=== PATIENT | female | born 1990 | race Two or more races ===

== ENCOUNTER 2016-11-18 15:41 | Emergency (ER) | payer BC ==
[~2016-11-18] VITALS: Ht 154.9 cm; Wt 93.0 kg
[~2016-11-18 15:41] MED LIST: FLOMAX0.4 MG ORAL; IBUPROFEN800 MG ORAL; NORCO 5-325 TA1 EACH ORAL; REGLAN10 MG ORAL; TYLENOL EXTRA500 MG ORAL
[2016-11-18 15:49] VITALS: BP 138/97
[2016-11-18] MEDS ORDERED: Ketorolac 60mg Inj IM ONE (16:00)
--- NOTE | 2016-11-18 16:04 | Emergency Room Report ---
History of Present Illness General Chief Complaint: Lower Back Pain or Injury Source: Patient Present Illness HPI 26 YO Female presents to the emergency department complaining of 10/10 in severity right sided low back and buttock pain x 1 week with occasional pain shooting down the posterior right leg. pt. states onset was after doing moderate heavy lifting which she normally does not do. Pt. states pain with lying flat, or sitting, pt. states position is only mildly comforting. Pt. states pain has not gotten better. denies RODRÍGUEZ, neck pain or stiffness. Patient denies frequency, urgency, hematuria, urinary retention, abdominal pain , nausea, vomiting, fevers, chills, recent spinal procedure, history of cancer, denies . Denies numbness tingling or loss of sensation or gross motor movements of the extremities, incontinence of bowel or bladder. Denies CP, Palpitations, LOC, AMS, dizziness, Changes in Vision, Sensation, paresthesias, or a sudden severe headache. Allergies: Coded Allergies: No Known Allergies (Unverified , 05/20/14) Patient History Past Medical History: see triage record Past Surgical History: none Pertinent Family History: none Last Menstrual Period: 11/03/16 Now: No Immunizations: UTD Reviewed Nursing Documentation: PMH: Agreed, PSxH: Agreed Nursing Documentation-PMH Past Medical History: No Stated History Hx Gastrointestinal Problems: No - C/Section in 07/2015 Review of Systems All Other Systems: negative except mentioned in HPI Physical Exam Vital Signs Date Time Temp Pulse Resp B/P (MAP) Pulse Ox O2 Delivery O2 Flow Rate FiO2 11/18/16 15:49 98.2 98 16 138/97 100 Room Air Sp02 EP Interpretation: reviewed, normal General Appearance: alert, GCS 15, non-toxic, mild distress Head: normocephalic, atraumatic Eyes: bilateral eye normal inspection, bilateral eye PERRL ENT: hearing grossly normal, normal voice Neck: full range of motion, no meningismus, no bony tend Respiratory: lungs clear, normal breath sounds, speaking full sentences Cardiovascular #1: regular rate, rhythm, normal capillary refill Gastrointestinal: normal bowel sounds, non tender, soft, no guarding, no rebound Rectal: deferred Genitourinary: normal inspection, no CVA tenderness Musculoskeletal: back normal, other - pt. has stance that is slightly bent forward. , tender - moderate TTP to the right upper glute, and lateral lumbar paraspinal musculature, no midline ttp, no appreciable left paraspinal ttp. no obvious deformity, pt. unable to tolerate straight leg raise evaluation. Neurologic: alert, oriented x3, responsive, motor strength/tone normal, sensory intact, speech normal Psychiatric: judgement/insight normal, memory normal, mood/affect normal Reflexes: 2+ knee (R), 2+ knee (L) Skin: normal color, no rash, warm/dry, well hydrated Medical Decision Making PA Attestation Dr. Love is my supervising Physician whom patient management has been discussed with. Diagnostic Impression: Primary Impression: Lumbosacral strain Qualified Codes: S39.012A - Strain of muscle, fascia and tendon of lower back , initial encounter ER Course Patient presents to the emergency department complaining of right sided low back and buttock pain x 1 week with occasional pain shooting down the posterior right leg. pt. states onset was after doing moderate heavy lifting. Ddx considered: epidural abscess, fracture, sprain/strain, meningitis, spinal chord injury. Vital signs reviewed and are WNL during ED visit., non toxic appearance, mild distress. Pt. is afebrile with no signs of infection No new symptoms, and denies recent trauma. No saddle anesthesia noted, Pt. denies incontinence Neurovascular is intact ROM is limited due to pain -Unable to tolerate straight leg raise. * Mild Tenderness to palpation to right paraspinal muscles of the lower back, no spinous process tenderness, no midline tenderness. difficult for pt. to find POC. *Pt. describes pain today as moderate and radiates across the lower back. ORDERS: none warranted at this time. INTERVENTIONS: - 15mg IM Toradol -Soma PO I do not suspect an emergent condition at this time. with current presentation pt. is stable for close outpatient follow up and Conservative treatments. D/w pt. to return to ED with worsening or new symptoms. DISCHARGE: At this time pt. is stable for d/c to home. Will provide printed patient care instructions, and any necessary prescriptions. Care plan and follow up instructions have been discussed with the patient prior to discharge. Last Vital Signs Date Time Temp Pulse Resp B/P (MAP) Pulse Ox O2 Delivery O2 Flow Rate FiO2 11/18/16 15:49 98.2 98 16 138/97 100 Room Air Disposition: HOME, SELF-CARE Condition: Stable Scripts Ibuprofen* (MOTRIN*) 600 Mg Tablet 600 MG ORAL THREE TIMES A DAY, #30 TAB 0 Refills Prov: Yoselin Esqueda 11/18/16 Cyclobenzaprine Hcl* (FLEXERIL*) 10 Mg Tablet 10 MG ORAL THREE TIMES A DAY for 7 Days, #21 TAB Prov: Yoselin Esqueda 11/18/16 Departure Forms: Return to Work Return to Work Date: Nov 21, 2016 Work Restrictions: No Heavy Lifting, No Prolonged Standing, Desk Work Only Other Restrictions: light duty x 1 week, no heavy lifting. Return to Full Activity: Nov 28, 2016 Patient Instructions: Lumbosacral Strain, Sciatica, [id number] Additional Instructions: Take medications as directed. Follow up with a Primary Care Provider in 3-5 days, even if your symptoms have resolved. --Please review list of primary care clinics, if you do not already have a primary care provider Return sooner to ED if new symptoms occur, or current symptoms become worse. Do not drink alcohol, drive, or operate heavy machinery while taking Flexeril as this may cause drowsiness. - Please note that this Emergency Department Report was dictated using [employer] technology software, occasionally this can lead to erroneous entry secondary to interpretation by the dictation equipment. Yoselin Esqueda Nov 18, 2016 16:04
[2016-11-18] MEDS ORDERED: CYCLOBENZAPRINE10 MG ORAL (16:05)
[2016-11-18] MEDS ORDERED: IBUPROFEN600 MG ORAL (16:05)
[2016-11-18 16:53] VITALS: BP 127/68
[2016-11-19] MEDS ORDERED: BENADRYL25 MG ORAL (13:24)
[2016-11-19] MEDS ORDERED: PREDNISONE20 MG ORAL (13:24)
== END 2016-11-18 17:00 | disposition home or self-care (01) ==
LOC: EMR 16:59
DX: S39.012A Strain of muscle, fascia and tendon of lower back, initial encounter (principal); X50.0XXA Overexertion from strenuous movement or load, initial encounter; Y93.9 Activity, unspecified; Y92.9 Unspecified place or not applicable
CPT/HCPCS: 96372; 99284

== ENCOUNTER 2016-11-19 12:26 | Emergency (ER) | payer BC ==
[~2016-11-19] VITALS: Ht 154.9 cm; Wt 94.8 kg
[~2016-11-19 12:26] MED LIST changes: +CYCLOBENZAPRINE10 MG ORAL; +IBUPROFEN600 MG ORAL
[2016-11-19] MEDS ORDERED: PredniSONE 20mg tab ORAL ONE (13:00)
[2016-11-19] MEDS ORDERED: PREDNISONE20 MG ORAL (13:24)
[2016-11-19] MEDS ORDERED: BENADRYL25 MG ORAL (13:24)
[2016-11-19 13:37] VITALS: BP 141/94
[2016-11-19 13:45] VITALS: BP 141/94
--- NOTE | 2016-11-19 17:05 | Emergency Room Report ---
History of Present Illness General Chief Complaint: Skin Rash/Abscess Present Illness HPI The patient is a 26-year-old female presenting for rash. She was seen in this emergency department yesterday for pain and given a shot of Toradol. She states that she then went home and felt itching. Rash noticed over the arms, torso, and legs. She denies SOB, CP, difficulty swallowing, N, V, F, chills, pain. She has not tried any medications for this yet. She denies any known allergies Allergies: Coded Allergies: No Known Allergies (Unverified , 05/20/14) Patient History Past Medical History: see triage record Pertinent Family History: none Reviewed Nursing Documentation: PMH: Agreed, PSxH: Agreed Nursing Documentation-PMH Hx Gastrointestinal Problems: No - C/Section in 07/2015 Review of Systems All Other Systems: negative except mentioned in HPI Physical Exam Vital Signs Date Time Temp Pulse Resp B/P (MAP) Pulse Ox O2 Delivery O2 Flow Rate FiO2 11/19/16 12:35 98.4 107 20 141/94 100 Room Air Sp02 EP Interpretation: reviewed, normal General Appearance: no apparent distress, alert, GCS 15, non-toxic Head: normocephalic, atraumatic Eyes: bilateral eye normal inspection, bilateral eye PERRL ENT: hearing grossly normal, normal pharynx, no angioedema, normal voice Neck: full range of motion, supple/symm/no masses Respiratory: chest non-tender, lungs clear, normal breath sounds, speaking full sentences Cardiovascular #1: regular rate, rhythm, no edema Musculoskeletal: back normal, gait/station normal, normal range of motion, non- tender Neurologic: alert, oriented x3, responsive, motor strength/tone normal, sensory intact, speech normal Psychiatric: judgement/insight normal, memory normal, mood/affect normal, no suicidal/homicidal ideation Skin: rash - erythema to bilat arms, legs, and chest. Lymphatic: no adenopathy Medical Decision Making PA Attestation Dr. adhikari is my supervising physician. Patient management was discussed with my supervising physician Diagnostic Impression: Primary Impression: Allergic reaction Qualified Codes: T78.40XA - Allergy, unspecified, initial encounter ER Course The patient is a 26-year-old female presenting for likely allergic reaction Ddx considered include but not limited to insect bite, contact dermatitis, eczema, cellulitis, drug reaction, allergic reaction PE: NAD HEENT exam is unremarkable. No angioedema. Oropharynx is patent. Lungs are clear to auscultation bilaterally There is erythema to arms, legs, chest. The patient is given prednisone and Zyrtec. She is discharged home with a prescription for prednisone and Benadryl and needs to follow up with primary doctor. She was advised to have allergy testing done. ER precautions are given Last Vital Signs Date Time Temp Pulse Resp B/P (MAP) Pulse Ox O2 Delivery O2 Flow Rate FiO2 11/19/16 13:45 98.4 78 20 141/94 100 Room Air Status: improved Disposition: HOME, SELF-CARE Condition: Improved Scripts Prednisone* (PREDNISONE*) 20 Mg Tablet 40 MG ORAL DAILY, #10 TAB Prov: ESTELITA MARIE 11/19/16 Diphenhydramine Hcl* (BENADRYL*) 25 Mg Capsule 25 MG ORAL Q6H Y for Itching, #20 CAP Prov: ESTELITA MARIE 11/19/16 Referrals: NON PHYSICIAN (PCP) Patient Instructions: Rash Additional Instructions: I discussed my findings with the patient. All questions and concerns have been answered. Treatment and medication compliance have been addressed. I advised the patient that they need to follow up with PMD in 3-5 days. Return to ED if symptoms worsen, new symptoms arise, or if needed for any reason. Patient verbalized understanding of discharge instructions. 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
== END 2016-11-19 13:46 | disposition home or self-care (01) ==
LOC: EMR 13:28
DX: T78.40XA Allergy, unspecified, initial encounter (principal); X58.XXXA Exposure to other specified factors, initial encounter; Y93.9 Activity, unspecified; Y92.9 Unspecified place or not applicable
CPT/HCPCS: 99284